=== PATIENT | male | born 1935 | race Caucasian/White ===

== ENCOUNTER → 2020-04-24 | Outpatient (CLI) | payer MEDICARE ==
--- NOTE | 2020-04-24 14:09 | RAD ---
INDICATION: Reason: LOWER BACK LUMP, HEMATOMA / Spl. Instructions: / History: COMPARISON: None. FINDINGS: Focused ultrasound images are obtained of the subcutaneous soft tissues of the lower back. Within the subcutaneous soft tissues there is a large heterogenous masslike structure measures 56 x 31 mm. Daisy cent edema to the soft tissues. IMPRESSION: * Heterogenous masslike structures identified within the subcutaneous soft tissues of the lower [place]. Differential considerations would include a complex fluid collection such as soft tissue hematoma with neoplastic causes also within the differential. Follow-up will be needed to ensure that this abbie ropriately decreases to ensure that there is not a neoplastic etiology. * Edema of the soft tissues. Electronically signed by: Jordan Jamison MD (04/24/2020 2:07 PM) [id number]
== END ==
LOC: US 10:50
PROVIDERS: ATTEND Family Medicine
DX: R22.2 Localized swelling, mass and lump, trunk (principal)
CPT/HCPCS: 76882